=== PATIENT | female | born 1965 | race Caucasian/White ===

== ENCOUNTER 2023-02-04 06:47 | Day surgery (SDC) | payer OTHER ==
[~2023-02-04] VITALS: Ht 162.6 cm; Wt 6987.6 kg
[2023-02-04] MEDS ORDERED: CORTISPORIN-TC10 M1 OTIC (12:22)
== END 2023-02-04 15:00 | disposition home or self-care (01) ==
LOC: CIR.AMB 06:47
PROVIDERS: ATTEND Otolaryngology Otology & Neurotology
DX: H68.103 Unspecified obstruction of Eustachian tube, bilateral (principal); H73.813 Atrophic flaccid tympanic membrane, bilateral; Z20.822 Contact with and (suspected) exposure to COVID-19